=== PATIENT | female | born 1995 | race Caucasian/White ===

== ENCOUNTER → 2021-02-01 07:59 | Outpatient (CLI) | payer OTHER | END | disposition home or self-care (01) | LOC: PPH VACUNA 07:59 | DX: Z23 Encounter for immunization (principal) ==

== ENCOUNTER 2021-03-03 09:00 | Outpatient (CLI) | payer OTHER | END 2021-03-03 09:05 | disposition home or self-care (01) | LOC: PPH VACUNA 09:00 | DX: Z23 Encounter for immunization (principal) ==